=== PATIENT | male | born 1960 | race Caucasian/White ===

== ENCOUNTER 2018-10-21 12:00 | Emergency (ER) | payer SELFPAY ==
[~2018-10-21] VITALS: Ht 170.2 cm; Wt 65.9 kg
[2018-10-21 12:05] VITALS: Ht 170.2 cm; Wt 65.9 kg
[2018-10-21 12:24] VITALS: BP 122/84; PULSE 70; RESP 18
[2018-10-21] MEDS ORDERED: GABA100C14 PO (13:47)
--- NOTE | 2018-10-21 13:49 | ERD ---
ER Documentation Chief Complaint Chief Complaint L shoulder pain, R body burning, body aches, weakness X 1 month worse X1hr HPI 58-year-old male presents the emergency department with a number of nonspecific symptoms. Patient states that for over a month has had burning in both upper and lower extremities. He reports no specific chest pain or shortness of breath. He reports that the pain is worse in his left shoulder than the other extremities. He reports no trauma. Patient states that he thinks this secondary to smoking. He reports no cough or hemoptysis. ROS All systems reviewed and are negative except as per history of present illness. Medications Home Meds Active Scripts Gabapentin* (Gabapentin*) 100 Mg Capsule, 100 MG PO TID, #90 CAP Prov:KASEY ERIC 10/21/18 Allergies Allergies: Coded Allergies: No Known Allergy (Unverified , 10/21/18) PMhx/Soc Medical and Surgical Hx: pt denies Medical Hx, pt denies Surgical Hx Hx Alcohol Use: No Hx Substance Use: No Hx Tobacco Use: Yes Smoking Status: Heavy tobacco smoker FmHx Noncontributory for chief complaint Physical Exam Vitals Vital Signs Date Temp Pulse Resp B/P (MAP) Pulse Ox O2 O2 Flow FiO2 Time Delivery Rate 10/21/18 70 18 122/84 97 Room Air 12:24 (97) 10/21/18 97.7 78 18 132/68 98 12:05 (89) Physical Exam GENERAL: The patient is well developed and appropriate for usual state of health in no apparent distress HEENT: Pupils equal, round, and reactive to light. EOMI. There is no scleral icterus. NECK: C-spine is soft and supple, there is no meningismus. There is no cervical lymphadenopathy. LUNGS: Clear to auscultation bilaterally. There are no rales, wheezes or rhonchi. HEART: Regular rate and rhythm, no murmurs, clicks, rubs or gallops. ABDOMEN: Soft, non-tender, non-distended. There are bowel sounds in all four quadrants. No rebound or guarding. EXTREMITIES: There is no peripheral cyanosis or edema. No focal swelling or puja thema. NEURO: The patient moves all four extremities with 5/5 strength. Cranial nerves II - XII are intact. Normal gait. Alert and oriented SKIN: There is no apparent rash or petechiae. HEME/LYMPHATIC: There is no evidence of excessive bruising or lymphedema. PSYCHIATRIC: The patient does not appear anxious or depressed. Result Diagram: 10/21/18 1236 10/21/18 1236 Results 24 hrs Laboratory Tests Test 10/21/18 12:36 White Blood Count 5.8 10^3/ul Red Blood Count 5.30 10^6/ul Hemoglobin 14.5 g/dl Hematocrit 44.0 % Mean Corpuscular Volume 83.0 fl Mean Corpuscular Hemoglobin 27.4 pg Mean Corpuscular Hemoglobin Concent 33.0 g/dl Red Cell Distribution Width 13.2 % Platelet Count 254 10^3/UL Mean Platelet Volume 10.0 fl Immature Granulocytes % 0.900 % Neutrophils % 65.3 % Lymphocytes % 21.7 % Monocytes % 9.0 % Eosinophils % 2.9 % Basophils % 0.2 % Nucleated Red Blood Cells % 0.0 /100WBC Immature Granulocytes # 0.050 10^3/ul Neutrophils # 3.8 10^3/ul Lymphocytes # 1.3 10^3/ul Monocytes # 0.5 10^3/ul Eosinophils # 0.2 10^3/ul Basophils # 0.0 10^3/ul Nucleated Red Blood Cells # 0.0 10^3/ul Sodium Level 140 mmol/L Potassium Level 3.8 mmol/L Chloride Level 103 mmol/L Carbon Dioxide Level 29 mmol/L Anion Gap 8 Blood Urea Nitrogen 16 mg/dl Creatinine 0.72 mg/dl Est Glomerular Filtrat Rate mL/min > 60 mL/min Glucose Level 116 mg/dl Calcium Level 10.2 mg/dl Total Bilirubin 0.4 mg/dl Direct Bilirubin 0.00 mg/dl Indirect Bilirubin 0.4 mg/dl Aspartate Amino Transf (AST/SGOT) 31 IU/L Alanine Aminotransferase (ALT/SGPT) 40 IU/L Alkaline Phosphatase 70 IU/L Troponin I < 0.012 ng/ml Total Protein 7.2 g/dl Albumin 4.5 g/dl Globulin 2.70 g/dl Albumin/Globulin Ratio 1.66 Procedures/MDM Patient was taken to a room, seen and evaluated. Comfort measures were initiated. Diagnostic tests were ordered and reviewed. 3 LEAD RHYTHM STRIP: Normal sinus rhythm without ectopy EK lead EKG reviewed by myself: Normal Sinus Rhythm Normal [place] and intervals No ST elevation, depression, or T wave inversion Impression: Normal EKG RADIOLOGY: Reviewed with the radiologist REEVALUATION: Patient is remained hemodynamically stable and comfortable appearing MEDICAL DECISION MAKIN-year-old male presents with a number of nonspecific symptoms. His diagnostic work-up shows no evidence of significant cardiac, pulmonary, infectious or other significant causes of his discomfort. Overall, he appears to be clinically well after reassurance now seems to be appropriate for discharge. Departure Diagnosis: Primary Impression: Neuropathy Condition: Stable Patient Instructions: What Is Peripheral Neuropathy? Additional Instructions: See your doctor for follow-up as discussed. Take a copy of your test results, if appropriate, to this follow-up visit. See your doctor or return here if your symptoms do not improve as expected. At any time, please return to the emergency department for any change or worsening in her symptoms. KASEY ERIC October 21, 2018 13:49
--- NOTE | 2018-10-23 14:43 | RADRPT ---
Vent Rate: 89 bpm RR Interval: 0 msec NM Interval: 148 msec QRS Duration: 86 msec QT Interval: 360 msec QTC Interval: 438 msec P-R-T [place]: 76 - 77 - 56 degrees Normal sinus rhythm Right atrial enlargement Borderline ECG Electronically Signed By: [facility]
== END 2018-10-21 14:03 | disposition home or self-care (01) ==
LOC: E/R 12:00
DX: G62.9 Polyneuropathy, unspecified (principal); F17.210 Nicotine dependence, cigarettes, uncomplicated; R40.2142 Coma scale, eyes open, spontaneous, at arrival to emergency department; R40.2362 Coma scale, best motor response, obeys commands, at arrival to emergency department; R40.2252 Coma scale, best verbal response, oriented, at arrival to emergency department
CPT/HCPCS: 36415; 71045; 80053; 84484; 85025; 93005

== ENCOUNTER 2018-10-24 13:35 | Emergency (ER) | payer SELFPAY ==
[~2018-10-24] VITALS: Wt 65.1 kg
[~2018-10-24 13:35] MED LIST: GABA100C14 PO
[2018-10-24] MEDS ORDERED: CYCLOBENZAPRINE 10 MG TAB PO ONE (18:30)
[2018-10-24] MEDS ORDERED: HYDROCODONE/APAP (10/325) TAB PO ONE (18:30)
[2018-10-24] MEDS ORDERED: HYDR-4011 PO (18:39)
[2018-10-24] MEDS ORDERED: CYCL10TA7 PO (18:39)
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
[2018-10-24 19:20] VITALS: BP 126/65; PULSE 79; RESP 18
--- NOTE | 2018-10-24 19:22 | PN ---
Date/Time of Note Date/Time of Note DATE: 10/24/18 TIME: 19:22 AVE NUÑEZ MD October 24, 2018 19:22
== END 2018-10-24 19:21 | disposition home or self-care (01) ==
LOC: E/R 13:35
DX: M50.20 Other cervical disc displacement, unspecified cervical region (principal); F17.210 Nicotine dependence, cigarettes, uncomplicated; R20.2 Paresthesia of skin; R05 Cough
CPT/HCPCS: 71045; 72141

== ENCOUNTER 2018-11-09 11:58 | Emergency (ER) | payer SELFPAY ==
[~2018-11-09] VITALS: Wt 64.5 kg
[~2018-11-09 11:58] MED LIST changes: +CYCL10TA7 PO; +HYDR-4011 PO
[2018-11-09 11:59] VITALS: BP 129/81; PULSE 85; RESP 18
[2018-11-09] MEDS ORDERED: NAPR-985 PO (13:43)
[2018-11-09] MEDS ORDERED: GABA100C14 PO (13:43)
[2018-11-09] MEDS ORDERED: KETOROLAC 30 MG INJ IM STA (14:14)
[2018-11-09] MEDS ORDERED: DEXAMETHASONE 10 MG/ML 1 ML INJ IM ONE (14:30)
--- NOTE | 2018-11-09 14:40 | ERD ---
ER Documentation Chief Complaint Chief Complaint BIALTERAL KNEE PAIN AND LEFT FOREARM PAIN FOR THE PAST 2 MOS . NO TRAUMA HPI 58-year-old male with no reported past medical history who presents with multiple joint related complaints including bilateral knee pain, left forearm pain, tingling over the past 2 months. Reports pain to the affected areas but no weakness to upper or lower extremities, no paresthesias, no urinary or bowel incontinence. Patient seen in his ED earlier this month noted with questionable cervical level hematoma. Seen by attending and Dr. Stoner surgeon consulted on case. MRI done at the time of the C-spine showed multilevel severe disease with disc herniation with evidence of compression on the cord. It was also noted that he possibly had a hematoma. A discussion was had by attending of record with neurosurgeon on-call, Dr. Stoner. [place] patient's symptoms are progressive and did not require emergent surgery at the [facility]. He also does not believe that there was a hematoma in area of note. Patient offered surgical intervention to help improve his symptoms and prevent further decompensation at that time but elected against admission and surgery that following day. Risks and benefits were discussed at the time with patient and family but was noted to be strongly against surgery. He elected to follow-up with Dr. Stoner outpatient in his clinic but has not done so. He has not filled the prescription for prescribed pain medications and reports that he accidentally lost gabapentin medications. ROS All systems reviewed and are negative except as per history of present illness. Medications Home Meds Active Scripts Naproxen* (Naprosyn*) 500 Mg Tablet, 500 MG PO BID PRN for PAIN AND/OR INFLAMMATION, #30 TAB Prov:MANISHA HU PA-C 11/09/18 Gabapentin* (Gabapentin*) 100 Mg Capsule, 100 MG PO TID, #30 CAP Prov:MANISHA HU PA-C 11/09/18 Cyclobenzaprine Hcl* (Cyclobenzaprine Hcl*) 10 Mg Tablet, 10 MG PO TID PRN for MUSCLE SPASMS, #15 TAB Prov:JENAE THORNTON MD 10/24/18 Hydrocodone/Acetaminophen ([place] 5-325 Tablet) 1 Each Tablet, 1 TAB PO Q6H PRN for PAIN, #10 TAB Prov:JENAE THORNTON MD 10/24/18 Gabapentin* (Gabapentin*) 100 Mg Capsule, 100 MG PO TID, #90 CAP Prov:KASEY ERIC 10/21/18 Allergies Allergies: Coded Allergies: No Known Allergy (Unverified , 10/24/18) PMhx/Soc Medical and Surgical Hx: pt denies Medical Hx, pt denies Surgical Hx History of Surgery: No Anesthesia Reaction: No Hx Neurological Disorder: No Hx Respiratory Disorders: No Hx Cardiac Disorders: No Hx Psychiatric Problems: No Hx Miscellaneous Medical Probl: Yes (Neck pain chronic) Hx Alcohol Use: No Hx Substance Use: No Hx Tobacco Use: Yes (decreased smoking to 1 cig a day) Smoking Status: Current every day smoker FmHx Family History: No diabetes, No coronary disease, No other Physical Exam Vitals Vital Signs Date Temp Pulse Resp B/P (MAP) Pulse Ox O2 O2 Flow FiO2 Time Delivery Rate 11/09/18 98.0 85 18 129/81 98 11:59 (97) Physical Exam I have reviewed the triage vital signs. Const: Well nourished, well developed, appears stated age Eyes: PERRL, no conjunctival injection HENT: NCAT, Neck supple without meningismus CV: RRR, Warm, well-perfused extremities RESP: CTAB, Unlabored respiratory effort GI: soft, non-tender, non-distended, no masses MSK: No gross deformities appreciated, 5 out of 5 strength to upper and lower extremities bilaterally, SI LT throughout upper and lower extremities, no paraspinal tenderness, full range of motion, normal gait, takes full multiple steps throughout examination room without issue Skin: Warm, dry. No rashes Neuro: grossly non focal Psych: Appropriate mood and affect. Results 24 hrs Current Medications Medications Dose Sig/Reina Start Time Status Last (Trade) Ordered Route PRN Stop Time Admin Dose Reason Admin Ketorolac 30 mg ONCE STAT 11/09/18 DC 11/09/18 Tromethamine IM 14:14 11/09/18 14:20 (Toradol) 14:15 10 mg ONCE ONCE 11/09/18 11/09/18 Dexamethasone IM 14:30 11/09/18 14:20 (Decadron) 14:31 Procedures/MDM 58-year-old male who presents with multiple joint complaints. Recent MRI done of the C-spine showed multilevel severe disease with disc herniation with evidence of compression on the cord. It was also noted that he possibly had a hematoma but neurosurgeon Dr. Stoner did not agree that he had such. He was offered surgery at the time and declined. Electing for outpatient follow-up which patient has not yet arranged. He does not exhibit any concerning symptoms for acute cord compression or cauda equina spite MRI findings at this time, given presentation and symptoms, including epidural abscess. Patient has no history of malignancy, active or distant history. Patient has no unexplained weight loss. No recent fevers, rigors, malaise, or recent infection. No history of IVDU or skin-popping. Patient does not have any history concerning for saddle anesthesia/perianal sensory loss or complaining of decreased rectal tone. Patient does not have urinary retention or inability to control urine from overflow. Patient has no tenderness overlying spinous process. Patient has no focal weakness on examination. Given exam and history, low suspicion for cord compression, cauda equina, epidural abscess/hematoma. Distally neurovascularly intact. Query likely musculoskeletal component. Discussed pain control,and follow up with PMD. Cautious return precautions discussed w/ full understanding I have explained in great detail patient's need to follow-up with neurosurgeon Dr. Stoner or surgeon of his choice via his primary care provider. Return precautions explained in detail in case he develops concerning of vascular symptoms. Will refill gabapentin prescription and offered naproxen. DISPOSITION PLAN: We discussed follow up with the patient's primary care doctor within 24 to 48 hours. Patient counseled regarding my diagnostic impression and care plan. Prior to discharge all questions answered. Pt agrees with treatment plan and understands strict return precautions. Precautionary instructions provided including instructions to return to the ER if not improving or for any worsening or changing symptoms or concerns. Disclaimer: Inadvertent spelling and grammatical errors are likely due to EHR/dictation software use and do not reflect on the overall quality of patient care. Also, please note that the electronic time recorded on this note does not necessarily reflect the actual time of the patient encounter. Departure Diagnosis: Primary Impression: Multiple complaints Condition: Stable Patient Instructions: Radiculopathy, Cervical Referrals: AVE STONER MD [facility] YOU HAVE RECEIVED A MEDICAL SCREENING EXAM AND THE RESULTS INDICATE THAT YOU DO NOT HAVE A CONDITION THAT REQUIRES URGENT TREATMENT IN THE EMERGENCY DEPARTMENT. FURTHER EVALUATION AND TREATMENT OF YOUR CONDITION CAN WAIT UNTIL YOU ARE SEEN IN YOUR DOCTORS OFFICE WITHIN THE NEXT 1-2 DAYS. IT IS YOUR RESPONSIBILITY TO MAKE AN APPOINTMENT FOR FOLOW-UP CARE. IF YOU HAVE A PRIMARY DOCTOR --you should call your primary doctor and schedule an appointment IF YOU DO NOT HAVE A PRIMARY DOCTOR YOU CAN CALL OUR PHYSICIAN REFERRAL HOTLINE AT IF YOU CAN NOT AFFORD TO SEE A PHYSICIAN YOU CAN CHOSE FROM THE FOLLOWING [facility] [address] [facility] [place] [address] [facility] [facility] [address] [facility] [address] [facility]. [facility] [address] [facility]. [facility]. [address] Additional Instructions: Call your primary care doctor TOMORROW for an appointment during the next 2-3 days.See the doctor sooner or return here if your condition worsens before your appointment time. You need to establish care with your regular doctor. You may require referral to the listed specialist for continued care for your symptoms. MANISHA HU PA-C Nov 09, 2018 14:35
== END 2018-11-09 15:03 | disposition home or self-care (01) ==
LOC: FTE 11:58
DX: M25.561 Pain in right knee (principal); F17.210 Nicotine dependence, cigarettes, uncomplicated; M25.562 Pain in left knee; M79.632 Pain in left forearm
CPT/HCPCS: 96372; 99284; J1100; J1885

== ENCOUNTER 2018-12-01 14:51 | Emergency (ER) | payer SELFPAY ==
[~2018-12-01] VITALS: Ht 165.1 cm; Wt 65.8 kg
[~2018-12-01 14:51] MED LIST changes: +NAPR-985 PO
[2018-12-01 14:55] VITALS: BP 124/76; PULSE 100; RESP 16; Ht 165.1 cm; Wt 65.8 kg
--- NOTE | 2018-12-01 18:10 | ERD ---
ER Documentation Chief Complaint Chief Complaint back pain sent by neurologist for mri HPI 58-year-old male presents with complaint of left knee pain and mild back pain. States that he was referred here by his neurologist for an MRI but he is unsure as to his neurologist name. States that the leg pain is been going on for the last 2 days. States that the back pain is a chronic issue. Patient is ambulatory. Denies chest pain, SOB, flank pain, dsyuria, hematuria, saddle numbness, leg weakness, leg numbness, incontinence, pain worse at night or when supine, weight loss, night sweats, fatigue, focal neurological defecits, recent bacterial infection, IV drug use, or immunosuppression. ROS All systems reviewed and are negative except as per history of present illness. Medications Home Meds Active Scripts Naproxen* (Naprosyn*) 500 Mg Tablet, 500 MG PO BID PRN for PAIN AND/OR INFLAMMATION, #30 TAB Prov:MANISHA HU PA-C 11/09/18 Gabapentin* (Gabapentin*) 100 Mg Capsule, 100 MG PO TID, #30 CAP Prov:MANISHA HU PA-C 11/09/18 Cyclobenzaprine Hcl* (Cyclobenzaprine Hcl*) 10 Mg Tablet, 10 MG PO TID PRN for MUSCLE SPASMS, #15 TAB Prov:JENAE THORNTON MD 10/24/18 Hydrocodone/Acetaminophen ([place] 5-325 Tablet) 1 Each Tablet, 1 TAB PO Q6H PRN for PAIN, #10 TAB Prov:JENAE THORNTON MD 10/24/18 Gabapentin* (Gabapentin*) 100 Mg Capsule, 100 MG PO TID, #90 CAP Prov:KASEY ERIC 10/21/18 Allergies Allergies: Coded Allergies: No Known Allergy (Unverified , 10/24/18) PMhx/Soc History of Surgery: No Anesthesia Reaction: No Hx Neurological Disorder: No Hx Respiratory Disorders: No Hx Cardiac Disorders: No Hx Psychiatric Problems: No Hx Miscellaneous Medical Probl: Yes (Neck pain chronic) Hx Alcohol Use: No Hx Substance Use: No Hx Tobacco Use: Yes (decreased smoking to 1 cig a day) Smoking Status: Current every day smoker FmHx Family History: No diabetes, No coronary disease, No other Physical Exam Vitals Vital Signs Date Temp Pulse Resp B/P (MAP) Pulse Ox O2 O2 Flow FiO2 Time Delivery Rate 12/01/18 97.9 100 16 124/76 97 14:55 (92) Physical Exam Const: No acute distress Head: Atraumatic Eyes: Normal Conjunctiva ENT: Normal External Ears, Nose and Mouth. Neck: Full range of motion. No meningismus. Resp: Clear to auscultation bilaterally Cardio: Regular rate and rhythm, no murmurs Abd: Soft, non tender, non distended. Normal bowel sounds Skin: No petechiae or rashes Back: No midline or flank tenderness. Full range of motion. Ext: No cyanosis, or edema. No midline tenderness. 5 out of 5 strength in Lower extremities with sensation and pulses intact. There is no saddle numbness. Patient is ambulatory. Neur: Awake and alert Psych: Normal Mood and Affect Procedures/MDM MDM: Patient's presentation is not consistent with cauda equina. Patient is ambulatory. In addition patient is unsure who the doctor who referred him here is. I discussed this case with my supervising physician Dr. Hernandez and he stated that patient's condition was not emergent enough to receive an MRI as there were no suspicions of emergent conditions, however, patient could be offered a CT scan instead. I did offer the CT scan to the patient but patient refused the CT scan and said he would rather go back to his doctor and tell him that we were unable to do an MRI here but rather offered him a CT scan. I have low suspicion for epidural abscess, cauda equina, abdominal aortic aneurysm, pyelonephritis, aortic dissection, spinal fracture, or other emergent conditions based on patient history and exam findings. Patient told if they experience leg weakness or numbness, or incontinence they need to return to the ER immediately. At this time, patient is stable for discharge and outpatient management. I have instructed the patient to follow-up with his/her primary care physician in 1-2 days. I have discussed with the patient the possibility of needing to see a specialist for further workup and imaging studies if symptoms persist. I have instructed the patient to promptly return to the ER for any new or worsening symptoms including but not limited to increased pain, fever, nausea, vomiting, weakness or LOC. The patient and/or family expressed understanding of and agreement with this plan. All questions were answered. Home care instructions were provided. DISCLAIMER: Inadvertent spelling and grammatical errors are likely due to EHR/dictation software use and do not reflect on the overall quality of patient care. Also, please note that the electronic time recorded on this note does not necessarily reflect the actual time of the patient encounter. Departure Diagnosis: Primary Impression: Back pain Back pain location: low back pain Chronicity: chronic Back pain laterality: unspecified Sciatica presence: with sciatica Sciatica laterality: sciatica of left side Qualified Codes: M54.42 - Lumbago with sciatica, left side; G89.29 - Other chronic pain Condition: Stable Patient Instructions: Back Pain W/ Sciatica Referrals: [facility] YOU HAVE RECEIVED A MEDICAL SCREENING EXAM AND THE RESULTS INDICATE THAT YOU DO NOT HAVE A CONDITION THAT REQUIRES URGENT TREATMENT IN THE EMERGENCY DEPARTMENT. FURTHER EVALUATION AND TREATMENT OF YOUR CONDITION CAN WAIT UNTIL YOU ARE SEEN IN YOUR DOCTORS OFFICE WITHIN THE NEXT 1-2 DAYS. IT IS YOUR RESPONSIBILITY TO MAKE AN APPOINTMENT FOR FOLOW-UP CARE. IF YOU HAVE A PRIMARY DOCTOR --you should call your primary doctor and schedule an appointment IF YOU DO NOT HAVE A PRIMARY DOCTOR YOU CAN CALL OUR PHYSICIAN REFERRAL HOTLINE AT IF YOU CAN NOT AFFORD TO SEE A PHYSICIAN YOU CAN CHOSE FROM THE FOLLOWING [facility] [address] [facility]. [facility] [address] [facility]. [facility] [address] [facility] [facility] [address] [facility]. [facility] [address] [facility]. [facility]. [address] Additional Instructions: FOLLOW UP WITH YOUR PRIMARY CARE PHYSICIAN TOMORROW.Return to this facility if you are not improving as expected. As discussed, you can tell your primary consider physician that you refused to receive a CT and we do not feel that an MRI was appropriate at this time in the ER due to your nonemergent condition. Please follow-up with your doctor to receive an outpatien MRI. If you experience any numbness, weakness, incontinence, fevers, chills, please return to ER immediately. JEANETTE SNOW Dec 01, 2018 18:10
[2018-12-02] MEDS ORDERED: TRAM50TA2 PO ×2 (15:50→15:55)
[2018-12-02] MEDS ORDERED: IBUP800T48 PO (15:53)
[2018-12-02] MEDS ORDERED: CYCL10TA7 PO (15:53)
[2018-12-02] MEDS ORDERED: GABA100C14 PO (15:53)
== END 2018-12-01 18:45 | disposition home or self-care (01) ==
LOC: FTE 14:51
DX: M54.42 Lumbago with sciatica, left side (principal); F17.210 Nicotine dependence, cigarettes, uncomplicated
CPT/HCPCS: 99282

== ENCOUNTER 2018-12-02 13:07 | Emergency (ER) | payer MEDICAID ==
[~2018-12-02] VITALS: Ht 160 cm; Wt 65.0 kg
[2018-12-02 13:09] VITALS: BP 137/94; PULSE 90; RESP 18; Ht 160 cm; Wt 65.0 kg
[2018-12-02] MEDS ORDERED: TRAM50TA2 PO ×2 (15:50→15:55)
[2018-12-02] MEDS ORDERED: GABA100C14 PO (15:53)
[2018-12-02] MEDS ORDERED: CYCL10TA7 PO (15:53)
[2018-12-02] MEDS ORDERED: IBUP800T48 PO (15:53)
[2018-12-02] MEDS ORDERED: KETOROLAC 60 MG INJ IM STA (15:55)
[2018-12-02] MEDS ORDERED: DEXAMETHASONE 10 MG/ML 1 ML INJ IM ONE (16:00)
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
== END 2018-12-02 16:17 | disposition home or self-care (01) ==
LOC: FTE 13:07
DX: M54.16 Radiculopathy, lumbar region (principal); F17.210 Nicotine dependence, cigarettes, uncomplicated
CPT/HCPCS: 72131; 96372; J1100; J1885; Z7502

== ENCOUNTER 2018-12-07 00:48 | Inpatient (IN) | payer MEDICAID ==
[~2018-12-07] VITALS: Ht 170.2 cm; Wt 66.5 kg
[~2018-12-07 00:48] MED LIST changes: +IBUP800T48 PO; +TRAM50TA2 PO
--- NOTE | 2018-12-07 02:36 | ERD ---
ER Documentation Chief Complaint Chief Complaint BODY PAIN, STIFF JOINTS, DIFFICULTY WALKING HPI This is a 58-year-old man with continued complaints of paresthesias to both hands and decreased casing cooker strength, this is his fourth visit to our ER in the last month for similar symptoms, he also states he has pain to the upper and lower extremities bilaterally. Recent MRI of the cervical spine was positive for central canal narrowing and C4-C5 left posterolateral disc herniation. Patient denies fevers or chills, no weight loss, no chest pain or shortness of breath. He states he was given follow-up with neurosurgeon Dr. Stoner but was unable to get in touch with him. ROS All systems reviewed and are negative except as per history of present illness. Medications Home Meds Active Scripts Tramadol HCl (Tramadol HCl) 50 Mg Tablet, 50 MG PO Q6 PRN for MODERATE-SEVERE PAIN, #20 TAB Only take tramadol in the event that pain does not decrease with administration of gabapentin. Tramadol is to be used for breakthrough pain only. Prov:MITA REDMAN NP 12/02/18 Ibuprofen* (Motrin*) 800 Mg Tab, 600 MG PO Q6H PRN for PAIN AND/OR INFLAMMATION, #30 TAB Prov:MITA REDMAN NP 12/02/18 Cyclobenzaprine Hcl* (Cyclobenzaprine Hcl*) 10 Mg Tablet, 10 MG PO TID for MUSCLE PAIN/LEG PAIN, #30 TAB Prov:MITA REDMAN V WASTEWATER ANALYST 12/02/18 Gabapentin* (Gabapentin*) 100 Mg Capsule, 100 MG PO TID for CHRONIC BACK PAIN, #90 CAP Prov:MITA REDMAN NP 12/02/18 Naproxen* (Naprosyn*) 500 Mg Tablet, 500 MG PO BID PRN for PAIN AND/OR INFLAMMATION, #30 TAB Prov:MANISHA HU-C 11/09/18 Gabapentin* (Gabapentin*) 100 Mg Capsule, 100 MG PO TID, #30 CAP Prov:MANISHA HU PA-C 11/09/18 Cyclobenzaprine Hcl* (Cyclobenzaprine Hcl*) 10 Mg Tablet, 10 MG PO TID PRN for MUSCLE SPASMS, #15 TAB Prov:JENAE THORNTON MD 10/24/18 Hydrocodone/Acetaminophen ([place] 5-325 Tablet) 1 Each Tablet, 1 TAB PO Q6H PRN for PAIN, #10 TAB Prov:JENAE THORNTON MD 10/24/18 Gabapentin* (Gabapentin*) 100 Mg Capsule, 100 MG PO TID, #90 CAP Prov:KASEY ERIC 10/21/18 Allergies Allergies: Coded Allergies: No Known Allergy (Unverified , 10/24/18) PMhx/Soc Chronic recurrent pain syndrome, cervical spine disc herniation History of Surgery: No Anesthesia Reaction: No Hx Neurological Disorder: No Hx Respiratory Disorders: No Hx Cardiac Disorders: No Hx Psychiatric Problems: No Hx Miscellaneous Medical Probl: No Hx Alcohol Use: No Hx Substance Use: No Hx Tobacco Use: No Smoking Status: Former smoker FmHx Family History: No diabetes Physical Exam Vitals Vital Signs Date Temp Pulse Resp B/P (MAP) Pulse Ox O2 O2 Flow FiO2 Time Delivery Rate 12/07/18 98.2 88 20 144/93 98 Room Air 04:08 (110) 12/07/18 78 15 137/86 98 Room Air 02:22 (103) 12/07/18 97.3 87 18 173/93 96 01:26 (119) Physical Exam Const: Mild discomfort, appears anxious, afebrile Resp: Clear to auscultation bilaterally Cardio: Regular rate and rhythm, no murmurs Ext: Patient has bilateral muscle wasting of the dorsal thenar muscles, calves symmetrical, distal pulses equal bilateral Neur: Awake and alert x3, casing cooker strength diminished bilaterally, gait normal, no facial asymmetry Psych: Appears anxious Result Diagram: 12/07/18 0326 12/07/18 0326 Results 24 hrs Laboratory Tests Test 12/07/18 03:26 White Blood Count 11.0 10^3/ul Red Blood Count 5.01 10^6/ul Hemoglobin 13.5 g/dl Hematocrit 41.3 % Mean Corpuscular Volume 82.4 fl Mean Corpuscular Hemoglobin 26.9 pg Mean Corpuscular Hemoglobin Concent 32.7 g/dl Red Cell Distribution Width 13.3 % Platelet Count 274 10^3/UL Mean Platelet Volume 10.3 fl Immature Granulocytes % 0.500 % Neutrophils % 75.5 % Lymphocytes % 13.4 % Monocytes % 8.7 % Eosinophils % 1.6 % Basophils % 0.3 % Nucleated Red Blood Cells % 0.0 /100WBC Immature Granulocytes # 0.060 10^3/ul Neutrophils # 8.3 10^3/ul Lymphocytes # 1.5 10^3/ul Monocytes # 1.0 10^3/ul Eosinophils # 0.2 10^3/ul Basophils # 0.0 10^3/ul Nucleated Red Blood Cells # 0.0 10^3/ul Sodium Level 142 mmol/L Potassium Level 3.7 mmol/L Chloride Level 105 mmol/L Carbon Dioxide Level 28 mmol/L Anion Gap 9 Blood Urea Nitrogen 19 mg/dl Creatinine 0.69 mg/dl Est Glomerular Filtrat Rate mL/min > 60 mL/min Glucose Level 126 mg/dl Calcium Level 9.2 mg/dl Current Medications Medications Dose Sig/Reina Start Time Status Last (Trade) Ordered Route PRN Stop Time Admin Dose Reason Admin Sodium 1,000 ml @ Q1H STAT 12/07/18 12/07/18 Chloride 1,000 mls/hr IV 03:21 12/07/18 03:30 04:20 Ketorolac 15 mg ONCE STAT 12/07/18 DC 12/07/18 Tromethamine IV 03:21 12/07/18 03:30 (Toradol) 03:22 Procedures/MDM IV line was established patient was placed on marine drafter rhythm strip revealed a sinus rhythm at about 80 bpm with upright P and T waves. Patient was afebrile MRI of the cervical spine performed 1 month ago, IMPRESSION: 1. 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 2. Large 5 - 6 mm left paracentral to posterolateral disc herniation at C4-C5 with suggestion of an epidural hematoma/blood products (10 x 3 x 7 mm) adjacent to the disc herniation compressing the ventral left cord with severe central canal narrowing. Continued follow-up is recommended in which follow-up pos tcontrast images may also be helpful for additional evaluation. Moderate to severe bilateral neural foraminal narrowing. 3. Severe bilateral neural foraminal narrowing at C3-C4, C5-C6, and C6-C7 with moderate to severe/severe degenerative disc disease and uncovertebral osteophytes. 4. Moderate to severe central canal narrowing at C6-C7 with a broad 2-3 mm disc protrusion. 5. Small focus of myelomalacia within the cord at the level of C5-C6 with moderate central canal narrowing. 6. Moderate to severe right neural foraminal narrowing at C2-C3. I spoke to neurosurgeon on-call Dr. Stoner regarding the patient's presentation and symptomatology, he kindly agreed to consult the patient in the morning I administered 1 L normal saline IV and Toradol 15 mg IV CBC and electrolytes were normal, coagulation profile was normal. Patient will be admitted to [facility] for continued medical management and neurosurgery consultation Departure Diagnosis: Primary Impression: Herniation of intervertebral disc at C4-C5 level Additional Impressions: Cervical radiculopathy at C5 Paresthesias Condition: GRUPO Crocker MD Dec 07, 2018 02:36
[2018-12-07] MEDS ORDERED: KETOROLAC 15 MG INJ IV STA (03:21)
[2018-12-07] MEDS ORDERED: SOD CHLORIDE 0.9% 1,000 ML IV STA (03:21)
[2018-12-07] MEDS ORDERED: LORAZEPAM 0.5 MG TAB PO ONE (04:44)
[2018-12-07] MEDS ORDERED: DOCUSATE SODIUM 100 MG CAP PO PRN (05:00)
[2018-12-07] MEDS ORDERED: BISACODYL (EC) 5 MG TAB PO PRN (05:00)
[2018-12-07] MEDS ORDERED: ACETAMINOPHEN 325 MG TAB PO PRN (05:00)
[2018-12-07] MEDS ORDERED: NACL 0.9% 3 ML SYG IV SCH (05:00)
[2018-12-07] MEDS ORDERED: ONDANSETRON 4 MG INJ IV PRN (05:00)
--- NOTE | 2018-12-07 05:02 | HP ---
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 - Neurosurgery was previously consulted in this case however at the patient did not want to proceed with any surgical intervention patient was supposed to follow-up as an outpatient with neurosurgery but they never did. Today the patient though he still remains hesitant he is willing to be evaluated by the neurosurgeon to assess options he may have for the symptoms. #2 lumbar spine disc bulge with superimposed herniation previous CT lumbar spine shows: At L4-L5 there is disc bulging with possible superimposed left paracentral/foraminal disc herniation , and moderate to severe facet arthropathy, resulting in severe central canal and bilateral foraminal stenosis, left greater than right. -This could be causing the symptoms with his left lower leg where he reports jerking movements and weakness.. Again neurosurgery has been consulted for this. Will await further recommendations. #3 anxiety: Patient does appear to be very anxious individual. He does also report a lot of stress in his life. We will give him a dose of p.o. Ativan. Will consult inpatient psychiatry for further evaluation #4 DVT GI prophylaxis: SCDs, no GI prophylaxis indicated Further treatment strategy will be implemented as per the clinical course Result Diagram: 12/07/18 0326 12/07/18 0326 Results 24hrs Laboratory Tests Test 12/07/18 03:26 White Blood Count 11.0 #H Red Blood Count 5.01 Hemoglobin 13.5 L Hematocrit 41.3 L Mean Corpuscular Volume 82.4 Mean Corpuscular Hemoglobin 26.9 L Mean Corpuscular Hemoglobin Concent 32.7 Red Cell Distribution Width 13.3 Platelet Count 274 Mean Platelet Volume 10.3 Immature Granulocytes % 0.500 H Neutrophils % 75.5 Lymphocytes % 13.4 L Monocytes % 8.7 Eosinophils % 1.6 Basophils % 0.3 Nucleated Red Blood Cells % 0.0 Immature Granulocytes # 0.060 H Neutrophils # 8.3 H Lymphocytes # 1.5 Monocytes # 1.0 H Eosinophils # 0.2 Basophils # 0.0 Nucleated Red Blood Cells # 0.0 Prothrombin Time 12.9 Prothrombin Time Ratio 1.0 INR International Normalized Ratio 0.96 Activated Partial Thromboplast Time 25.9 Sodium Level 142 Potassium Level 3.7 Chloride Level 105 Carbon Dioxide Level 28 Anion Gap 9 Blood Urea Nitrogen 19 Creatinine 0.69 Est Glomerular Filtrat Rate mL/min > 60 Glucose Level 126 Calcium Level 9.2 HPI/ROS Admit Date/Time Admit Date/Time Hx of Present Illness Chief complaint: Decreased interlibrary loan specialist strength the left hand, bilateral paresthesias This is a 58-year-old man with continued complaints of paresthesias to both hands and decreased interlibrary loan specialist strength of the left hand. Previous cervical MRI showed a large 5 to 6 mm paracentral to posterolateral disc herniation at C4-C5 with suggestion of an epidural hematoma/blood products adjacent to the disc herniation compressing the ventral cord with severe central canal narrowing.Severe bilateral neural foraminal narrowing at C3-C4, C5-C6, and C6-C7 with moderate to severe/severe degenerative disc disease and uncovertebral osteophytes. Please see the MRI results for full details. patient also reports that he is stressed out a lot lately secondary to problems back at home and a run for his family. He states that he is anxious. 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 He has done a lot of works with tools with his left hand. He denies any chest pain or nausea vomiting or diarrhea. Patient also reports that he has had issues walking especially with his left lower leg and at times he noticed that it jerks. He denies any medical problems. He used to be a smoker. Allergies: NKDA Medications: None ROS const: As per HPI Eyes : No pain discharge or redness or change in visual acuity ENT: No pain, sore throat, congestion, congestion, dysphagia or discharge Respiratory: No shortness of breath, cough, sputum, wheezing, or pleuritic pain Cardiovascular: No chest pain, palpitation, PND, or edema GI : no change in appetite, abdominal pain, nausea, vomiting, diarrhea, constipation, or change in the color his stool Genitourinary: No dysuria, hematuria, flank pain , discharge or CVA tenderness Musculoskeletal: As per HPI Skin: No rash, bruising or hives Neuro: No headache, dizziness, syncope, seizure, focal weakness Endocrine: No polyuria, polydipsia, temperature intolerance Psych: No hallucination, depression, anxiety or suicidal ideation PMH/Family/Social Past Medical History Cervical spine disc herniation, multilevel degenerative disc these Medications Current Medications Lorazepam (Ativan) 0.5 mg ONCE ONCE PO ; Start 12/07/18 at 04:44; Stop 12/07/18 at 04:45 Sodium Chloride 1,000 ml @ 75 mls/hr [id number] IV ; Start 12/07/18 at 04:42; Status UNV IV Flush (NS 3 ml) 3 ml PER PROTOCOL IV ; Start 12/07/18 at 05:00; Status UNV Ondansetron HCl (Zofran Inj) 4 mg Q6H PRN IV NAUSEA/VOMITING; Start 12/07/18 at 05:00; Status UNV Acetaminophen (Tylenol Tab) 650 mg Q6H PRN PO .PAIN 1-3 OR TEMP; Start 12/07/18 at 05:00 Docusate Sodium (Colace) 100 mg Q12H PRN PO .CONSTIPATION; Start 12/07/18 at 05:00; Status UNV Bisacodyl (Dulcolax) 5 mg DAILY PRN PO .CONSTIPATION; Start 12/07/18 at 05:00 Coded Allergies: No Known Allergy (Unverified , 12/07/18) Past Surgical History Past Surgical Hx: no surgical history Family History Significant Family History: no pertinent family hx Social History Alcohol Use: none Smoking Status: Former smoker Drug Use: none Exam/Review of Systems Vital Signs Vitals Vital Signs Date Temp Pulse Resp B/P (MAP) Pulse Ox O2 O2 Flow FiO2 Time Delivery Rate 12/07/18 98.2 88 20 144/93 98 Room Air 04:08 (110) Exam Exam General: Patient is currently sitting up in bed, he is very anxious, he is very hesitant regarding surgery. HEENT: Atraumatic, normocephalic. The pupils are equal, round and reactive. Extraocular motor are intact Neck: Supple with full range of motion. No rigidity or meningismus Chest: Nontender Lungs: Clear to auscultation bilaterally no crackles rales or wheezing Heart: Normal S1-S2, Regular rhythm and rate. No murmur, S3, or S4 Abdomen: Soft , nontender, nondistended , bowel sounds are present. No guarding no rebound tenderness , No masses or organomegaly. No costovertebral temporal angle mass Extremities: Decreased interlibrary loan specialist strength of his left hand, there does appear to be some degree of deformity of his left hand compared to his right, mild subjective tenderness palpation along the cervical spine Neurologic: Normal mental status, speech normal, cranial nerves II through XII are intact, motor and sensory are intact, no focal weakness patient is currently sitting upright in bed, Psych:patient does appear to be very anxious Additional Comments 1. 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 2. Large 5 - 6 mm left paracentral to posterolateral disc herniation at C4-C5 with suggestion of an epidural hematoma/blood products (10 x 3 x 7 mm) adjacent to the disc herniation compressing the ventral left cord with severe central canal narrowing. Continued follow-up is recommended in which follow-up postcontrast images may also be helpful for additional evaluation. Moderate to severe bilateral neural foraminal narrowing. 3. Severe bilateral neural foraminal narrowing at C3-C4, C5-C6, and C6-C7 with moderate to severe/severe degenerative disc disease and uncovertebral osteophytes. 4. Moderate to severe central canal narrowing at C6-C7 with a broad 2-3 mm disc protrusion. 5. Small focus of myelomalacia within the cord at the level of C5-C6 with moderate central canal narrowing. 6. Moderate to severe right neural foraminal narrowing at C2-C3. PROCEDURE: CT L-Spine. CLINICAL INDICATION: Low back pain radiating to left leg TECHNIQUE: A CT of the lumbar spine was performed on a [employer] 64-slice CT scanner utilizing high-resolution thin section axial images from the thoracic lumbar junction through the lumbar sacral junction. Sagittal and coronal and multiplanar reformatted images were made.The CTDIvol is 7.19 mGy and the DLP is 197.8 mGycm. DICOM images are available. One or more of the following dose reduction techniques were utilized: 1.) Automated exposure control 2.) Adjustment of the mA +/- kV according to patient's size 3.) Use of iterative reconstruction technique. COMPARISON: None available FINDINGS: Chronic-appearing deformity of the anterior superior endplate of L4 vertebral body with chronic-appearing adjacent ossific bodies (sagittal image 44). Otherwise no evidence of acute fracture or vertebral body height loss in the remainder of the lumbar spine. Straightening of the normal lordosis. Minimal retrolisthesis at L3-L4 and L5-S1, and minimal anterolisthesis L4-L5. Mild multilevel disc disease with mild multilevel height loss and multilevel shallow endplate Schmorl node formation. No acute appearing abnormality of the paravertebral soft tissues. Moderate calcified atherosclerosis of the abdominal aorta. T12-L1: No evidence of central canal or significant foraminal stenosis. L1-2: Mild disc bulging. No evidence of significant central canal or foraminal stenosis. L2-3: Mild disc bulging. No evidence of significant central canal or foraminal stenosis. L3-4: Mild to moderate disc height loss. Moderate disc bulging. Mild facet arthropathy with ligamentum flavum thickening. There is moderate bilateral foraminal stenosis. L4-5: Prominent disc bulging with possible superimposed left foraminal disc herniation, combined with moderate facet arthropathy and ligamentum flavum thickening results in severe stenosis of the central canal and bilateral neural foramen (series 4 image 70). Small locule of air, likely sequelae of facet arthropathy. L5-S1: Mild disc height loss. Mild disc bulging with possible small superimposed left foraminal disc protrusion. Mild facet arthropathy. Mild right foraminal narrowing. IMPRESSION: At L4-L5 there is disc bulging with possible superimposed left paracentral/foraminal disc herniation , and moderate to severe facet arthropathy, resulting in severe central canal and bilateral foraminal stenosis, left greater than right. Consider MRI for further evaluation. Other degenerative changes are detailed by level above. Chronic-appearing deformity of the anterior superior endplate of L4 vertebral body. No acute appearing fracture. Straightening of the normal lordosis. RPTAT:AAJJ Physician Mike Date Time Electronically viewed and signed by Physician Mike on 12/02/2018 15:36 RF/ CC: MITA REDMAN NP [id number] KEM AARON Dec 07, 2018 04:59
[2018-12-07 09:08] VITALS: Ht 170.2 cm; Wt 66.5 kg
[2018-12-07 14:29] VITALS: BP 126/58; RESP 19
--- NOTE | 2018-12-07 15:17 | PN ---
Date/Time of Note Date/Time of Note DATE: 12/07/18 TIME: 15:14 Assessment/Plan VTE Prophylaxis SCD applied (from Nsg): Yes Lines/Catheters IV Catheter Type (from Nrsg): Saline Lock Assessment/Plan Hospital Course Assessment plan 1. 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 It was reported that neurosurgery was consulted however patient did not follow-up outpatient with a neurosurgeon. Patient to be seen by an neurosurgeon while in-house due to recurrence of symptoms. 2. lumbar spine disc bulge with superimposed herniation previous CT lumbar spine shows: At L4-L5 there is disc bulging with possible superimposed left paracentral/foraminal disc herniation , and moderate to severe facet arthropathy, resulting in severe central canal and bilateral foraminal stenosis, left greater than right. Physical therapy to follow. Neurosurgeon evaluation p ending. 3. Anxiety. Patient reports that he was admitted due to his extreme stress. Awaiting psychiatric evaluation. Disposition plan. Psych eval pending. Will place on Xanax as needed. Wait for neurosurgeon evaluation. Discussed POC with Dr. Ramos Result Diagram: 12/07/18 0326 12/07/18 0326 Results 24hrs Laboratory Tests Test 12/07/18 03:26 White Blood Count 11.0 #H Red Blood Count 5.01 Hemoglobin 13.5 L Hematocrit 41.3 L Mean Corpuscular Volume 82.4 Mean Corpuscular Hemoglobin 26.9 L Mean Corpuscular Hemoglobin Concent 32.7 Red Cell Distribution Width 13.3 Platelet Count 274 Mean Platelet Volume 10.3 Immature Granulocytes % 0.500 H Neutrophils % 75.5 Lymphocytes % 13.4 L Monocytes % 8.7 Eosinophils % 1.6 Basophils % 0.3 Nucleated Red Blood Cells % 0.0 Immature Granulocytes # 0.060 H Neutrophils # 8.3 H Lymphocytes # 1.5 Monocytes # 1.0 H Eosinophils # 0.2 Basophils # 0.0 Nucleated Red Blood Cells # 0.0 Prothrombin Time 12.9 Prothrombin Time Ratio 1.0 INR International Normalized Ratio 0.96 Activated Partial Thromboplast Time 25.9 Sodium Level 142 Potassium Level 3.7 Chloride Level 105 Carbon Dioxide Level 28 Anion Gap 9 Blood Urea Nitrogen 19 Creatinine 0.69 Est Glomerular Filtrat Rate mL/min > 60 Glucose Level 126 Calcium Level 9.2 Subjective 24 Hr Interval Summary Free Text/Dictation Reports some weakness on left upper extremity. Reports having some paresthesias on bilateral upper extremities. Reports having anxiousness Exam/Review of Systems Exam Vitals Vital Signs Date Temp Pulse Resp B/P (MAP) Pulse Ox O2 O2 Flow FiO2 Time Delivery Rate 12/07/18 98.0 19 126/58 98 14:29 (80) 12/07/18 94 Room Air 06:43 Intake and Output 12/06/18 12/06/18 12/07/18 1414:59 22:59 06:59 IntakeIntake Total 1000 ml BalanceBalance 1000 ml Constitutional: alert, oriented Psych: anxiety Head: normocephalic Neck: supple, non-tender Respiratory: clear to auscultation Cardiovascular: regular rate and rhythm Gastrointestinal: soft, non-tender Musculoskeletal: other (weakness LUE ) Neurological: nl mental status, nl speech Skin: nl turgor Results Results 24hrs Laboratory Tests Test 12/07/18 03:26 White Blood Count 11.0 #H Red Blood Count 5.01 Hemoglobin 13.5 L Hematocrit 41.3 L Mean Corpuscular Volume 82.4 Mean Corpuscular Hemoglobin 26.9 L Mean Corpuscular Hemoglobin Concent 32.7 Red Cell Distribution Width 13.3 Platelet Count 274 Mean Platelet Volume 10.3 Immature Granulocytes % 0.500 H Neutrophils % 75.5 Lymphocytes % 13.4 L Monocytes % 8.7 Eosinophils % 1.6 Basophils % 0.3 Nucleated Red Blood Cells % 0.0 Immature Granulocytes # 0.060 H Neutrophils # 8.3 H Lymphocytes # 1.5 Monocytes # 1.0 H Eosinophils # 0.2 Basophils # 0.0 Nucleated Red Blood Cells # 0.0 Prothrombin Time 12.9 Prothrombin Time Ratio 1.0 INR International Normalized Ratio 0.96 Activated Partial Thromboplast Time 25.9 Sodium Level 142 Potassium Level 3.7 Chloride Level 105 Carbon Dioxide Level 28 Anion Gap 9 Blood Urea Nitrogen 19 Creatinine 0.69 Est Glomerular Filtrat Rate mL/min > 60 Glucose Level 126 Calcium Level 9.2 Medications Medication Current Medications Sodium Chloride 1,000 ml @ 75 mls/hr [id number] IV ; Start 12/07/18 at 04:42 IV Flush (NS 3 ml) 3 ml PER PROTOCOL IV ; Start 12/07/18 at 05:00 Ondansetron HCl (Zofran Inj) 4 mg Q6H PRN IV NAUSEA/VOMITING; Start 12/07/18 at 05:00 Acetaminophen (Tylenol Tab) 650 mg Q6H PRN PO .PAIN 1-3 OR TEMP; Start 12/07/18 at 05:00 Docusate Sodium (Colace) 100 mg Q12H PRN PO .CONSTIPATION; Start 12/07/18 at 05: 00 Bisacodyl (Dulcolax) 5 mg DAILY PRN PO .CONSTIPATION; Start 12/07/18 at 05:00 DOM ANDRADE NP Dec 07, 2018 15:17
[2018-12-07] MEDS ORDERED: ALPRAZOLAM 0.25 MG TAB PO PRN (15:30)
[2018-12-07] MEDS: SOD CHLORIDE 0.9% 1,000 ML IV SCH ×2 (18:02→19:07)
[2018-12-07 19:54] VITALS: BP 130/81; PULSE 81; RESP 20
[2018-12-08 01:33] VITALS: BP 124/80; PULSE 76; RESP 18
[2018-12-08 07:38] VITALS: BP 133/73; PULSE 85; RESP 20
[2018-12-08] MEDS: SOD CHLORIDE 0.9% 1,000 ML IV SCH ×3 (08:18→23:40)
[2018-12-08 13:34] VITALS: BP 129/68; PULSE 84; RESP 20
--- NOTE | 2018-12-08 13:55 | PN ---
Date/Time of Note Date/Time of Note DATE: 12/08/18 TIME: 13:50 Assessment/Plan VTE Prophylaxis Risk score (from Ns)>0 risk: 2 SCD applied (from Ns): Yes Pharmacological prophylaxis: NA/contraindicated Pharm contraindication: low risk/ambulating Lines/Catheters IV [facility]from [facility] Peripheral IV Assessment/Plan Hospital Course Assessment plan 1. 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 It was reported that neurosurgery was consulted however patient did not follow-up outpatient with a neurosurgeon. Patient to be seen by an neurosurgeon while in-house due to recurrence of symptoms. -Plan to discharge for outpatient follow-up with neurosurgeon if patient decides to defer surgery again at this time 2. lumbar spine disc bulge with superimposed herniation previous CT lumbar spine shows: At L4-L5 there is disc bulging with possible superimposed left paracentral/foraminal disc herniation , and moderate to severe facet arthropathy, resulting in severe central canal and bilateral foraminal stenosis, left greater than right. Physical therapy to follow. Neurosurgeon evaluation pending. 3. Anxiety. Patient reports that he was admitted due to his extreme stress. Patient to be seen by psych consult. Awaiting evaluation. Disposition plan. Psych eval pending. Follow-up with neurosurgeon. Anticipate discharge within the next 24 hours if patient decides to defer surgery again. Appears to be ambulating better today. We will follow-up Discussed POC with Dr. Ramos Result Diagram: 12/08/188 12/08/18437 Results 24hrs Laboratory Tests Test 12/08/18 04:38 White Blood Count 11.4 H Red Blood Count 4.64 L Hemoglobin 12.6 L Hematocrit 38.3 L Mean Corpuscular Volume 82.5 Mean Corpuscular Hemoglobin 27.2 L Mean Corpuscular Hemoglobin Concent 32.9 Red Cell Distribution Width 13.4 Platelet Count 257 Mean Platelet Volume 10.4 Immature Granulocytes % 0.500 H Neutrophils % 73.4 Lymphocytes % 15.0 Monocytes % 8.8 Eosinophils % 2.2 Basophils % 0.1 Nucleated Red Blood Cells % 0.0 Immature Granulocytes # 0.060 H Neutrophils # 8.4 H Lymphocytes # 1.7 Monocytes # 1.0 H Eosinophils # 0.3 Basophils # 0.0 Nucleated Red Blood Cells # 0.0 Sodium Level 142 Potassium Level 3.8 Chloride Level 108 Carbon Dioxide Level 27 Anion Gap 7 Blood Urea Nitrogen 12 Creatinine 0.68 Est Glomerular Filtrat Rate mL/min > 60 Glucose Level 104 Calcium Level 8.8 Total Bilirubin 0.6 Direct Bilirubin 0.00 Indirect Bilirubin 0.6 Aspartate Amino Transf (AST/SGOT) 20 Alanine Aminotransferase (ALT/SGPT) 29 Alkaline Phosphatase 74 Total Protein 6.2 Albumin 3.6 Globulin 2.60 Albumin/Globulin Ratio 1.38 Subjective 24 Hr Interval Summary Free Text/Dictation Still reports having anxiety. Reports less pain on upper extremities and less weakness in upper extremities Exam/Review of Systems Exam Vitals Vital Signs Date Temp Pulse Resp B/P (MAP) Pulse Ox O2 O2 Flow FiO2 Time Delivery Rate 12/08/18 98.8 84 20 129/68 98 13:34 (88) 12/07/18 Room Air 06:43 Intake and Output 12/07/18 12/07/18 12/08/18 1515:00 23:00 07:00 IntakeIntake Total 1625 ml OutputOutput Total 850 ml 500 ml BalanceBalance -850 ml 1125 ml Exam Constitutional: alert, oriented Psych: anxiety Head: normocephalic Neck: supple, non-tender Respiratory: clear to auscultation Cardiovascular: regular rate and rhythm Gastrointestinal: soft, non-tender Musculoskeletal: other (weakness LUE ) Neurological: nl mental status, nl speech Skin: nl turgor Results Results 24hrs Laboratory Tests Test 12/08/18 04:38 White Blood Count 11.4 H Red Blood Count 4.64 L Hemoglobin 12.6 L Hematocrit 38.3 L Mean Corpuscular Volume 82.5 Mean Corpuscular Hemoglobin 27.2 L Mean Corpuscular Hemoglobin Concent 32.9 Red Cell Distribution Width 13.4 Platelet Count 257 Mean Platelet Volume 10.4 Immature Granulocytes % 0.500 H Neutrophils % 73.4 Lymphocytes % 15.0 Monocytes % 8.8 Eosinophils % 2.2 Basophils % 0.1 Nucleated Red Blood Cells % 0.0 Immature Granulocytes # 0.060 H Neutrophils # 8.4 H Lymphocytes # 1.7 Monocytes # 1.0 H Eosinophils # 0.3 Basophils # 0.0 Nucleated Red Blood Cells # 0.0 Sodium Level 142 Potassium Level 3.8 Chloride Level 108 Carbon Dioxide Level 27 Anion Gap 7 Blood Urea Nitrogen 12 Creatinine 0.68 Est Glomerular Filtrat Rate mL/min > 60 Glucose Level 104 Calcium Level 8.8 Total Bilirubin 0.6 Direct Bilirubin 0.00 Indirect Bilirubin 0.6 Aspartate Amino Transf (AST/SGOT) 20 Alanine Aminotransferase (ALT/SGPT) 29 Alkaline Phosphatase 74 Total Protein 6.2 Albumin 3.6 Globulin 2.60 Albumin/Globulin Ratio 1.38 Medications Medication Current Medications Sodium Chloride 1,000 ml @ 75 mls/hr [id number] IV Last administered on 12/08/18at 08:18; Admin Dose 75 MLS/HR; Start 12/07/18 at 04:42 IV Flush (NS 3 ml) 3 ml PER PROTOCOL IV ; Start 12/07/18 at 05:00 Ondansetron HCl (Zofran Inj) 4 mg Q6H PRN IV NAUSEA/VOMITING; Start 12/07/18 at 05:00 Acetaminophen (Tylenol Tab) 650 mg Q6H PRN PO .PAIN 1-3 OR TEMP Last administered on 12/07/18at 20:04; Admin Dose 650 MG; Start 12/07/18 at 05:00 Docusate Sodium (Colace) 100 mg Q12H PRN PO .CONSTIPATION; Start 12/07/18 at 05:00 Bisacodyl (Dulcolax) 5 mg DAILY PRN PO .CONSTIPATION; Start 12/07/18 at 05:00 Alprazolam (Xanax) 0.25 mg Q8H PRN PO ANXIETY Last administered on 12/07/18at 20:04; Admin Dose 0.25 MG; Start 12/07/18 at 15:30 DOM ANDRADE NP Dec 08, 2018 13:55
--- NOTE | 2018-12-08 17:22 | PSY ---
Date/Time of Note Date/Time of Note DATE: 12/08/18 TIME: 17:18 Psychiatric Subjective Eval Consent Pt consented to telemedicine: No Subjective Evaluation Patient location: inpatient Chief Complaint: BODY PAIN, STIFF JOINTS, DIFFICULTY WALKING History of present illness Patient is a 58-year-old male admitted for left hand paresthesia, and a [id number] evaluation patient is increasingly anxious pacing in the room tearful reports feeling depressed and afraid. 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 He reports feeling hopeless but he declined antidepressants, states he does not want medication to take control of his body. However patient agreed to alprazolam as needed. He denies suicidal ideation and contracted for safety. Past psychiatric history Denies Hospitalization: other Medical history Problems Medical Problems: (1) Back pain Status: Acute (2) Cervical radiculopathy at C5 Status: Acute (3) Herniated cervical intervertebral disc Status: Acute (4) Herniation of intervertebral disc at C4-C5 level Status: Acute (5) Lumbar back pain with radiculopathy affecting left lower extremity Status: Acute (6) Lumbar back pain with radiculopathy affecting left lower extremity Status: Acute (7) Multiple complaints Status: Acute (8) Neuropathy Status: Acute (9) Paresthesia of upper and lower extremities of both sides Status: Acute (10) Paresthesias Status: Acute Allergies: Coded Allergies: No Known Allergy (Unverified , 12/07/18) Substance Abuse Substance abuse history: No Prior substance abuse treatmen: No Social History Marital status: other DPA/Conservatorship: No Psychiatric Objective Eval Review of Systems: Review of Systems: Not Applicable Physical Examination: Appetite: Decreased Energy: Decreased Interest: Decreased Mental Status Examination: Appearance: Groomed, Poor Hygiene Eye Contact: Fair Behavior: Cooperative Speech: Soft AFFECT: Flat Mood: Depressed, Anxious Though Process: Linear Thought Content: Normal Orientation: x4 Insight: Intact Judgement: Intact Attention Span: Intact Laboratory Results Laboratory Tests Test 12/07/18 03:26 12/08/18 04:38 White Blood Count 11.0 10^3/ul 11.4 10^3/ul Red Blood Count 5.01 10^6/ul 4.64 10^6/ul Hemoglobin 13.5 g/dl 12.6 g/dl Hematocrit 41.3 % 38.3 % Mean Corpuscular Volume 82.4 fl 82.5 fl Mean Corpuscular Hemoglobin 26.9 pg 27.2 pg Mean Corpuscular Hemoglobin Concent 32.7 g/dl 32.9 g/dl Red Cell Distribution Width 13.3 % 13.4 % Platelet Count 274 10^3/UL 257 10^3/UL Mean Platelet Volume 10.3 fl 10.4 fl Immature Granulocytes % 0.500 % 0.500 % Neutrophils % 75.5 % 73.4 % Lymphocytes % 13.4 % 15.0 % Monocytes % 8.7 % 8.8 % Eosinophils % 1.6 % 2.2 % Basophils % 0.3 % 0.1 % Nucleated Red Blood Cells % 0.0 /100WBC 0.0 /100WBC Immature Granulocytes # 0.060 10^3/ul 0.060 10^3/ul Neutrophils # 8.3 10^3/ul 8.4 10^3/ul Lymphocytes # 1.5 10^3/ul 1.7 10^3/ul Monocytes # 1.0 10^3/ul 1.0 10^3/ul Eosinophils # 0.2 10^3/ul 0.3 10^3/ul Basophils # 0.0 10^3/ul 0.0 10^3/ul Nucleated Red Blood Cells # 0.0 10^3/ul 0.0 10^3/ul Prothrombin Time 12.9 Sec Prothrombin Time Ratio 1.0 INR International Normalized Ratio 0.96 Activated Partial Thromboplast Time 25.9 Sec Sodium Level 142 mmol/L 142 mmol/L Potassium Level 3.7 mmol/L 3.8 mmol/L Chloride Level 105 mmol/L 108 mmol/L Carbon Dioxide Level 28 mmol/L 27 mmol/L Anion Gap 9 7 Blood Urea Nitrogen 19 mg/dl 12 mg/dl Creatinine 0.69 mg/dl 0.68 mg/dl Est Glomerular Filtrat Rate mL/min > 60 mL/min > 60 mL/min Glucose Level 126 mg/dl 104 mg/dl Calcium Level 9.2 mg/dl 8.8 mg/dl Total Bilirubin 0.6 mg/dl Direct Bilirubin 0.00 mg/dl Indirect Bilirubin 0.6 mg/dl Aspartate Amino Transf (AST/SGOT) 20 IU/L Alanine Aminotransferase (ALT/SGPT) 29 IU/L Alkaline Phosphatase 74 IU/L Total Protein 6.2 g/dl Albumin 3.6 g/dl Globulin 2.60 g/dl Albumin/Globulin Ratio 1.38 Assessment and Plan Assessment/Diagnosis Diagnosis Depressive disorder single episode due to medical condition, anxiety NOS. Recommendation/Plan Medication Management Continue Xanax as ordered as ordered Psychotherapy Provide supportive therapy Discharge Disposition: Other Legal Status: Voluntary (Patient does not meet criteria for inpatient psychiatry, and does not meet criteria for 5150 hold.) OFELIA ANAYA NP Dec 08, 2018 17:22
[2018-12-08 20:00] VITALS: BP 139/86; PULSE 82; RESP 19
--- NOTE | 2018-12-08 21:49 | CONS ---
Assessment/Plan Assessment/Plan Assessment/Plan (Daily) Date of follow up consultation: 12/08/2018 The patient symptomatology is unchanged compared to yesterday. I had added the patient tentatively to the operating room schedule for today in case the patient changed his mind given his significant sensory motor deficit and repeated visits to the emergency department over the past 2 months. However, the patient has again refused to have any neurosurgical intervention today. He has indicated this to me, his nurse and his hospitalist. Review of systems: Denies chest pain, shortness of breath, heartburn. Denies diplopia, blurriness of vision. Physical examination: Patient is awake alert and oriented 4. Language is fluent. Face is symmetric. Extraocular movements are grossly normal. Muscle bulk is symmetric bilateral upper and lower extremity. Muscle tone is increased left upper and lower extremity as compared to the right. Deep tendon reflexes are 3+ left upper and lower extremities and 2+ right upper and lower extremities. Sensation to light touch is somewhat decreased involving the patient's entire left hand when compared to the right. Motor strength right upper and lower extremities is 5- out of 5. Motor strength left upper extremity is 4 out of 5 proximally and distally. Motor strength left lower extremity is 4+ out of 5 proximally and distally. There is bilateral Valarie sign present. There is bilateral dysdiadochokinesia present. Toe testing is equivocal. The patient's regular gait is wide-based. He has great difficulty doing the tandem gait. CERVICAL SPINE: Examination of the cervical spine reveals no significant tenderness. CERVICAL SPINE ACTIVE RANGE OF MOTION: Patient ROM Normal ROM Cervical flexion: 40 50 Cervical extension: 50 60 Cervical lateral rotation to the left: 70 80 Cervical lateral rotation to the right: 70 80 Imaging: There is no new imaging available for my review. Assessment/plan: I have again explained the consequences of not decompressing his cervical spine in light of severe cervical stenosis with significant signs and symptoms of cervical myelopathy. I have also explained to him, that continued cord compression can lead to further sensory motor deficit that can result in irreversible quadriparesis and even quadriplegia. The patient has indicated to me that he fully understands this. He is still under the impression that by changing his general lifestyle including quitting smoking, decreasing his "stress," that the above symptoms will improve on their own. I have again explained to him that his symptoms are related to his multilevel cervical cord compression. The patient again tells me that he does not wish to have any neurosurgical intervention/surgery. Therefore, we have canceled the patient's tentative operation for today. I have also relayed this information to the patient's hospitalist. AVE NUÑEZ MD Dec 08, 2018 21:49
--- NOTE | 2018-12-08 21:49 | CONS ---
Assessment/Plan Assessment/Plan Assessment/Plan (Daily) Date of consultation: 12/07/2018 Requesting physician:Dr. Rios with the emergency department Consulting service: Neurosurgery This is a 58-year-old male who is overall a poor historian but has apparently had ongoing upper extremity numbness, paresthesias and radiating upper extremity pain, much greater on the left than the right, for at least the past 2-3 months. The patient denies significant axial neck pain. Upon further questioning, he also does admit to decreased coordination of his upper extremities, dropping objects, gait imbalance and ataxia. The patient denies any preceding trauma to his head or neck. 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 He denies loss of consciousness, convulsions or seizures. The patient has presented to the emergency department multiple times over the past several months for the same symptoms as above and there have been multiple discussions made with the patient about admitting him with plans to have cervical decompressive surgery during the hospital admission. However, the patient has refused to be admitted and has refused to have cervical decompressive surgery during each emergency room visit. With this current visit , the emergency room physician, Dr. Rios had apparently had the same discussion with the patient again last night and the patient had indicated possibly being open to having cervical surgery. He has therefore been admitted to the hospital and a neurosurgical consultation has been requested for further evaluation. At my request, a new MRI of the cervical spine without contrast has also been obtained. Past medical history: Denies Allergies:No known drug allergies Review of systems: Denies chest pain, shortness of breath, heartburn. Denies diplopia, blurriness of vision. Family history: Noncontributory Social history: Tobacco: One to 2 pack cigarette smoker a day EtOH: Denies illicit or recreational drugs: Denies Physical examination: This is a middle-age male sitting up in bed. He appears to be grossly anxious. He is overall thin. Patient is awake alert and oriented 4. Language is fluent. Face is symmetric. Extraocular movements are grossly normal. Pupils are equally round and reactive to light bilaterally. Tongue is midline. Shoulder shrugs are symmetric. Muscle bulk is symmetric bilateral upper and lower extremity. Muscle tone is increased left upper and lower extremity as compared to the right. Deep tendon reflexes are 3+ left upper and lower extremities and 2+ right upper and lower extremities. Sensation to light touch is somewhat decreased involving the patient's entire left hand when compared to the right. Motor strength right upper and lower extremities is 5- out of 5. Motor strength left upper extremity is 4 out of 5 proximally and distally. Motor strength left lower extremity is 4+ out of 5 proximally and distally. There is bilateral Valarie sign present. There is bilateral dysdiadochokinesia present. Toe testing is equivocal. The patient's regular gait is wide-based. He has great difficulty doing the tandem gait. CERVICAL SPINE: Examination of the cervical spine reveals no significant tenderness. CERVICAL SPINE ACTIVE RANGE OF MOTION: Patient ROM Normal ROM Cervical flexion: 40 50 Cervical extension: 50 60 Cervical lateral rotation to the left: 70 80 Cervical lateral rotation to the right: 70 80 Imaging: MRI cervical spine without contrast, 12/07/2018: There is reversal of the normal cervical lordosis. There is no gross evidence of a fracture or subluxation noted. There is multilevel degenerative disc disease greatest at C3-4 and C5-6 levels. 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 There is associated myelomalacia and T2 hyperintensity signal changes of the spinal cord from C4 down to C6. Assessment/plan: I have had an extensive discussion with the patient regarding his clinical exam findings, signs and symptoms and image findings that are consistent with cervical myelopathy and radiculopathy secondary to severe multilevel cervical stenosis. I have also discussed his various treatment options that include continued observation/physical therapy versus neurosurgical intervention. Unfortunately, there is no medication or interventional pain management techniques that can undo his severe stenosis and cord compression. Any neurosurgical intervention would be aimed at decompression of his cervical spine at multiple levels. Given the patient's rather rapid progression of symptoms as reported by the patient (occurring over the past 2 months), there is a high likelihood that the patient will continue to have further progression of his cervical myelopathic symptoms that could lead to quadriparesis and even quadriplegia that can become irreversible. The patient can benefit from C3-4, C4-5 and C5-6 anterior cervical discectomy with instrumented fusion and placement of intervertebral cage with autologous bone versus ALLO graft. I have discussed the risks and benefits of the above operation in great detail with the patient with the risks including bleeding, infection, weakness, numbness, paralysis, bowel or bladder dysfunction, cerebrospinal fluid leak, injury to the adjacent tissues including the esophagus, trachea and the vessels, failure of improvement of symptoms or worsening of symptoms, need for further surgeries including extension or revision of the fusion and decompression as well as those risks associated with surgery and general anesthesia including deep venous thrombosis, pulmonary embolism, pneumonia, heart attack, stroke, and . I have also explained to the patient that with the anterior cervical approach, patients can at times experience hoarseness of the voice or dysphagia that usually improves over time. The patient fully understands the above discussion but he tells me that he does not wish to have any neurosurgical intervention done. He is under the impression that by stopping his heavy smoking, "taking better care of himself," and "decreasing stress in his life" that the above symptoms will resolve. I have done my best to explain to him that the above symptoms are most likely directly related to the multilevel severe cord compression and will not resolve by changing his lifestyle including quitting smoking. I have also relayed this information to the patient's covering hospitalist. AVE NUÑEZ MD Dec 08, 2018 21:49
[2018-12-09 02:26] VITALS: BP 135/71; PULSE 82; RESP 18
[2018-12-09 07:48] VITALS: BP 122/70; PULSE 78; RESP 18
--- NOTE | 2018-12-09 08:36 | PDOCDIS ---
Discharge Instructions DIAGNOSIS Discharge Diagnosis 1. Bilateral hand paresthesias with decreased left hand compounder strength: 2. lumbar spine disc bulge with superimposed herniation 3. Anxiety CONDITION [id number] Patient Condition: [id number] Stable FOLLOW UP/APPOINTMENTS Follow-up Plan 1. Follow up with Dr. Art Stoner in one week Office Address [address] [facility] [address] [place] [id number] Office DOM ANDRADE NP Dec 09, 2018 08:36
[2018-12-09] MEDS ORDERED: ALPR0.254 PO (08:40)
[2018-12-09 14:47] VITALS: BP 127/81; PULSE 86; RESP 17
--- NOTE | 2018-12-09 19:49 | PN ---
Date/Time of Note Date/Time of Note DATE: 12/09/18 TIME: 19:45 Assessment/Plan VTE Prophylaxis Risk score (from Ns)>0 risk: 2 SCD applied (from Ns): Yes Pharmacological prophylaxis: NA/contraindicated Pharm contraindication: low risk/ambulating Lines/Catheters IV [facility]from [facility] Peripheral IV Assessment/Plan Hospital Course Assessment plan 1. Bilateral hand paresthesias with decreased left hand qa lead strength: Cervical spine MRI: Large 5 - 6 mm left paracentral to posterolateral disc herniation at C4-C5 with suggestion of an epidural hematoma/blood products (10 x 3 x 7 mm) adjacent to the disc herniation compressing the ventral left cord with severe central canal narrowing. It was reported that neurosurgery was consulted however patient did not follow-up outpatient with a neurosurgeon. Patient to be seen by an neurosurgeon while in-house due to recurrence of symptoms. -Plan to discharge for outpatient follow-up with neurosurgeon . Patient deferring surgery again at this time 2. lumbar spine disc bulge with superimposed herniation previous CT lumbar spine shows: At L4-L5 there is disc bulging with possible superimposed left paracentral/foraminal disc herniation , and moderate to severe facet arthropathy, resulting in severe central canal and bilateral foraminal stenosis, left greater than right. Was seen by physical therapy 3. Anxiety. Patient reports that he was admitted due to his extreme stress. Was seen by psych consult. continue xanax prn. Disposition plan. Patient deferring back surgery. continue xanax for anxiety. Patient is homeless and declined skilled nursing. was seen by social services. Plan for d/c in AM once patient is able to return to his van where he resides. Discussed POC with Dr. Ramos Result Diagram: 12/09/18 0448 12/08/18 0438 Results 24hrs Laboratory Tests Test 12/09/18 04:48 White Blood Count 11.4 H Red Blood Count 4.96 Hemoglobin 13.5 L Hematocrit 41.3 L Mean Corpuscular Volume 83.3 Mean Corpuscular Hemoglobin 27.2 L Mean Corpuscular Hemoglobin Concent 32.7 Red Cell Distribution Width 13.2 Platelet Count 271 Mean Platelet Volume 10.2 Immature Granulocytes % 0.600 H Neutrophils % 72.5 Lymphocytes % 14.1 L Monocytes % 10.2 Eosinophils % 2.3 Basophils % 0.3 Nucleated Red Blood Cells % 0.0 Immature Granulocytes # 0.070 H Neutrophils # 8.3 H Lymphocytes # 1.6 Monocytes # 1.2 H Eosinophils # 0.3 Basophils # 0.0 Nucleated Red Blood Cells # 0.0 Subjective 24 Hr Interval Summary Free Text/Dictation comfortable. denies any pain. no obvious weakness noted at this time Exam/Review of Systems Exam Vitals Vital Signs Date Temp Pulse Resp B/P (MAP) Pulse Ox O2 O2 Flow FiO2 Time Delivery Rate 12/09/18 98.3 86 17 127/81 95 14:47 (96) 12/07/18 Room Air 06:43 Intake and Output 12/08/18 12/08/18 12/09/18 1515:00 23:00 07:00 IntakeIntake Total 1015 ml 1600 ml 735 ml OutputOutput Total 1250 ml 2275 ml 1100 ml BalanceBalance -235 ml -675 ml -365 ml Constitutional: alert, oriented Psych: nl mood/affect Head: normocephalic Neck: supple, non-tender Cardiovascular: regular rate and rhythm Gastrointestinal: soft, non-tender Musculoskeletal: nl gait and stance Neurological: REBRANDER II-XII intact, nl mental status, nl speech Skin: nl turgor Results Results 24hrs Laboratory Tests Test 12/09/18 04:48 White Blood Count 11.4 H Red Blood Count 4.96 Hemoglobin 13.5 L Hematocrit 41.3 L Mean Corpuscular Volume 83.3 Mean Corpuscular Hemoglobin 27.2 L Mean Corpuscular Hemoglobin Concent 32.7 Red Cell Distribution Width 13.2 Platelet Count 271 Mean Platelet Volume 10.2 Immature Granulocytes % 0.600 H Neutrophils % 72.5 Lymphocytes % 14.1 L Monocytes % 10.2 Eosinophils % 2.3 Basophils % 0.3 Nucleated Red Blood Cells % 0.0 Immature Granulocytes # 0.070 H Neutrophils # 8.3 H Lymphocytes # 1.6 Monocytes # 1.2 H Eosinophils # 0.3 Basophils # 0.0 Nucleated Red Blood Cells # 0.0 Medications Medication Current Medications Sodium Chloride 1,000 ml @ 75 mls/hr [id number] IV Last administered on 12/08/18at 23:40; Admin Dose 75 MLS/HR; Start 12/07/18 at 04:42 IV Flush (NS 3 ml) 3 ml PER PROTOCOL IV ; Start 12/07/18 at 05:00 Ondansetron HCl (Zofran Inj) 4 mg Q6H PRN IV NAUSEA/VOMITING; Start 12/07/18 at 05:00 Acetaminophen (Tylenol Tab) 650 mg Q6H PRN PO .PAIN 1-3 OR TEMP Last administered on 12/07/18at 20:04; Admin Dose 650 MG; Start 12/07/18 at 05:00 Docusate Sodium (Colace) 100 mg Q12H PRN PO .CONSTIPATION; Start 12/07/18 at 05:00 Bisacodyl (Dulcolax) 5 mg DAILY PRN PO .CONSTIPATION; Start 12/07/18 at 05:00 Alprazolam (Xanax) 0.25 mg Q8H PRN PO ANXIETY Last administered on 12/07/18at 20:04; Admin Dose 0.25 MG; Start 12/07/18 at 15:30 DOM ANDRADE NP Dec 09, 2018 19:49
[2018-12-09 20:01] VITALS: BP 120/83; PULSE 75; RESP 16
[2018-12-09] MEDS: SOD CHLORIDE 0.9% 1,000 ML IV SCH (22:29)
[2018-12-10 01:55] VITALS: BP 114/76; PULSE 79; RESP 16
[2018-12-10 08:00] VITALS: BP 127/72; PULSE 85; RESP 19
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
[2018-12-10 13:27] VITALS: BP 139/83; PULSE 88; RESP 16
== END 2018-12-10 13:40 | disposition home or self-care (01) | DRG 551 ==
LOC: E/R 00:48 → 2NE 03:33
PROVIDERS: ADMIT Family Medicine; ATTEND Internal Medicine
DX: M50.121 Cervical disc disorder at C4-C5 level with radiculopathy (principal); G95.19 Other vascular myelopathies; Z59.0 Homelessness; F41.9 Anxiety disorder, unspecified; Z87.891 Personal history of nicotine dependence; M51.16 Intervertebral disc disorders with radiculopathy, lumbar region; G62.9 Polyneuropathy, unspecified; F32.9 Major depressive disorder, single episode, unspecified
CPT/HCPCS: 36415; 72141; 80048; 80053; 85025; 85610; 85730; 96374; 97161; 97167; J1885; J7030